=== PATIENT | female | born 1960 ===

== ENCOUNTER → 2018-03-30 19:03 | Outpatient (REF) | payer OTHER, MEDICAID, SELFPAY | LOC: LAB 19:03 | PROVIDERS: Visit Provider Nurse Practitioner Acute Care | DX: R50.9 Fever, unspecified (principal); R60.0 Localized edema | CPT/HCPCS: 87070; 87075; 87077; 87147; 87186; 87205 ==

== ENCOUNTER 2020-11-04 12:24 | Emergency (ER) | payer OTHER, MEDICAID, SELFPAY ==
[2020-11-04 12:25] VITALS: BMI 21.4
--- NOTE | 2020-11-04 12:27 | DI.RAD.S_ITS ---
PROCEDURE: XR CHEST 1V INDICATIONS: chest pain TECHNIQUE: One view of the chest was acquired. COMPARISON: [facility], CR, CHEST 2VW, 12/16/2009, 9:35. [facility], CT, CT HEAD/BRAIN WO CON, 11/04/2020, 12:41. FINDINGS: Surgical changes and devices: None. Lungs and pleura: Lungs are clear. No pleural effusions or pneumothorax. Mediastinum: Mediastinal contours appear normal. Heart size is normal. A moderate hiatal hernia is seen, with an air-fluid level. Bones and chest wall: No suspicious bony lesions. Overlying soft tissues appear unremarkable. IMPRESSION: No acute cardiopulmonary process is seen. Moderate hiatal hernia. Dictated by: John Wang M.D. on 11/04/2020 at 11:52 Approved by: John Wang M.D. on 11/04/2020 at 11:53
--- NOTE | 2020-11-04 12:35 | DI.CT.S_ITS ---
PROCEDURE: CT HEAD/BRAIN WO CON INDICATIONS: out of sorts TECHNIQUE: Noncontrast 4.5 mm thick angled axial sections acquired from the foramen magnum to the vertex, with coronal reformats. For radiation dose reduction, the following was used: automated exposure control, adjustment of mA and/or kV according to patient size. COMPARISON: [facility], CR, XR CHEST 1V, 11/04/2020, 12:42. FINDINGS: Image quality: Excellent. CSF spaces: Basal cisterns are patent. An arachnoid cyst is seen involving the posterior fossa to the left of the midline, as on series 2 image 12. The ventricles are symmetric in size and shape. Brain: No intracranial bleeds or masses. There is cerebral volume loss for age, with resultant ventricular and sulcal prominence. There are mild periventricular and deep white matter chronic small vessel ischemic changes. There is intracranial internal carotid artery atherosclerosis. Skull and face: Calvarium and visualized facial bones appear intact, without suspicious lesions. Sinuses: Visualized sinuses and mastoids are clear. IMPRESSION: No acute intracranial process is seen. Dictated by: John Wang M.D. on 11/04/2020 at 11:53 Approved by: John Wang M.D. on 11/04/2020 at 11:56
[2020-11-04 13:10] LABS: Add Manual Diff / Slide Review NO; Basophils Absolute Auto 100 /uL (0-100); Eosinophils Absolute Auto 100 /uL (0-450); Eosinophils Percent Auto 2.6 % (2-4); Hematocrit 42.2 % (36-46); Hemoglobin 13.9 g/dL (12.0-16.0); Lymphocytes Absolute Auto 1000 /uL (1100-4500); Lymphocytes Percent Auto 18.3 % (25-40); Mean Corpuscular Hemoglobin 28.2 PG (26-34); Mean Corpuscular Volume 85.7 fL (80-100); Monocytes Absolute Auto 500 /uL (0-900); Neutrophils Absolute Auto 3600 /uL (1500-7000); Neutrophils Percent Auto 69.1 % (50-75); Platelet Count 245 X10^3/uL (150-400); Red Blood Cell Count 4.92 X10^6/uL (4.0-5.2); Red Cell Distribution Width 31.5 % (11.6-14.8); White Blood Cell Count 5.3 X10^3/uL (4.5-11.0)
[2020-11-04 13:15] LABS: HEMOLYSIS < 15 (0-50)
[2020-11-04 13:16] LABS: Prothrombin Time 10.8 SECONDS (10.1-12.7)
[2020-11-04 13:19] LABS: PTT Partial Thromboplastin Tim 35 SECONDS (26.4-36.2)
[2020-11-04 13:20] LABS: Alanine Aminotransferase 28 IU/L (<35); Albumin 4.5 g/dL (3.5-5.0); Albumin Globulin Ratio 1.4 (1.0-2.8); Alkaline Phosphatase 80 U/L (38-126); Aspartate Aminotransferase 50 IU/L (14-36); BUN Creatinine Ratio 20.3 (6-22); Bilirubin Total 0.5 mg/dL (0.2-1.3); Blood Urea Nitrogen 12 mg/dL (7-17); Calcium 9.9 mg/dL (8.4-10.2); Carbon Dioxide 25 mmol/L (22-32); Chloride 104 mmol/L (98-107); Creatine Kinase 39 U/L (30-135); Estimated Glomerular Filt Rate > 60.0 mL/min (>60); Globulin 3.2 g/dL (1.7-4.1); Glucose 104 mg/dL (80-110); Lipase 53 U/L (23-300); Potassium 4.1 mmol/L (3.4-5.1); Sodium 137 mmol/L (137-145); Total Protein 7.7 g/dL (6.3-8.2)
[2020-11-04 13:24] LABS: Anisocytosis 2+
[2020-11-04 13:33] LABS: Troponin I < 0.012 ng/mL (0.01-0.034)
== END 2020-11-04 16:29 | disposition left against medical advice (07) ==
PROVIDERS: Emergency Provider Emergency Medicine
DX: R07.9 Chest pain, unspecified (principal); R41.82 Altered mental status, unspecified; R53.1 Weakness; R42 Dizziness and giddiness
CPT/HCPCS: 36415; 70450; 71045; 80053; 81003; 82550; 83690; 84484; 85025; 85610; 85730; 93005; 99283; 99284

== ENCOUNTER 2020-11-04 18:09 | Emergency (ER) | payer OTHER, MEDICAID, SELFPAY ==
[2020-11-04 18:20] VITALS: BP 141/72; PULSE 82; RESP 18; TEMP 36.6; O2SAT 98
--- NOTE | 2020-11-04 18:33 | ED_ITS ---
HPI - Recheck/Abnormal Lab/Rx General Chief Complaint: Recheck/Abnormal Lab/Rx Stated Complaint: Not Feeling Well Time Seen by Provider: 11/04/20 18:33 Source: patient Mode of arrival: Ambulatory Limitations: no limitations History of Present Illness HPI narrative: Patient is a 59-year-old female who presents with not feeling well and generalized weakness for the last 1 week. Hit got worse earlier today she was here she had head CT could she was slightly dizzy she a blood work EKG chest x-ray and then left before she was evaluated and has now returned. She feels like she has extra sweaty she has a history of what sounds like GI bleed. She was admitted at [place] and transferred up to [place] she required a blood transfusion she said she had a bleeding ulcer she is worried that her iron is low again. She denies chest pain or palpitations. She has not passed out. Related Data Home Medications Medication Instructions Recorded Confirmed albuterol sulfate 1 - 2 inh INHALATION QID PRN 11/04/20 11/04/20 oxybutynin chloride 5 mg PO DAILY 11/04/20 11/04/20 Review of Systems Review of Systems ROS Unobtainable: All systems reviewed & are unremarkable except as noted in HPI and below Constitutional Constitutional: Denies chills, Denies fever(s), Reports lethargy and Reports weakness Eyes Eyes: Denies change in vision, Denies eye discharge, Denies irritation and De nies loss of vision Cardiovascular Cardiovascular: Denies chest pain, Denies irregular heart rhythm, Denies lightheadedness, Denies palpitations, Denies dyspnea, Denies dyspnea on exertion and Denies orthopnea Respiratory Respiratory: Denies cough, Denies dyspnea, Denies dyspnea on exertion and Denies wheezing Gastrointestinal Gastrointestinal: Denies abdominal pain, Denies change in bowel habits, Denies diarrhea, Denies nausea and Denies vomiting Musculoskeletal Musculoskeletal: Denies back pain and Denies myalgias Integumentary/Breasts Skin/Breast: Denies pruritus, Denies erythema, Denies rash and Denies wounds Neurologic Neurologic: Denies loss of vision and Reports weakness Endocrine Endocrine: Denies palpitations Allergic/Immunologic Allergic/Immunologic: Denies wheezing Patient History Social History Smoking Status: Current every day smoker Smoking Status: Current every day smoker alcohol intake frequency: 0-2 drinks per day Substance Use Type: does not use Exam Initial Vital Signs Initial Vital Signs: Vital Signs Temperature 97.8 F 11/04/20 18:20 Pulse Rate 82 11/04/20 18:20 Respiratory Rate 18 11/04/20 18:20 Blood Pressure 141/72 H 11/04/20 18:20 Pulse Oximetry 98 11/04/20 18:20 GENERAL: Well-appearing, well-nourished and in no acute distress. HEENT: Head atraumatic,EOMI, pupils reactive, face symmetric, moist mucous membranes CARDIOVASCULAR: Regular rate and rhythm without murmurs, rubs or gallops. RESPIRATORY: Breath sounds equal bilaterally, no wheezes rales or rhonchi. ABDOMEN: Soft, nontender. Normoactive bowel sounds all 4 quadrants. No guarding or rebound. EXTREMITIES: Normal range of motion, no clubbing or edema. Neurovascularly intact NEUROLOGICAL: Alert and oriented x4.Normal gait and speech. Cranial nerves II through XII grossly intact. Good [id number], good [id number], strength equal bilaterally, no dysarthria or aphasia, sensation in tact to soft touch bilaterally, no visual changes, no facial droop SKIN: Warm, dry, no laceration, no petechiae, no rashes or lesions. Scores NIH Stroke Scale Level of Conciousness: Alert, keenly responsive Ask month/age: Answers both questions correctly. Open/close eyes, close hand: Performs both tasks correctly Best gaze horizontal: Normal Visual pastor: No visual loss Facial palsy: Normal symetrical movement Left arm drift: No drift for full 10 sec Right arm drift: No drift for full 10 sec Left leg drift: No drift for full 5 sec Right leg drift: No drift for full 5 sec Limb ataxia: Absent Sensory on face/arms/legs: Normal, no sensory loss Best language: No aphasia, normal Dysarthria: Normal Extinction or inattention: No abnormality Total NIH Stroke scale score: 0 Course Orders Ordered: ED Orders 11/04/20 18:48 Troponin I Stat 11/04/20 18:49 EKG-12 Lead Stat Vital Signs Vital signs: Vital Signs - 8 hr 11/04/20 18:20 Temperature 97.8 F Pulse Rate 82 Respiratory Rate 18 Blood Pressure 141/72 H Pulse Oximetry 98 MDM - Recheck/Abnormal Lab/Rx Lab Data Attestation: I reviewed the patient's lab results. Labs: Lab Results 11/04/20 Range/Units 19:00 Troponin I < 0.012 (0.01-0.034) ng/mL Urine Dip Bedside Urine Glucose Negative Bedside Urine Bilirubin - Negative Bedside Urine Ketone - Negative Urine Specific [place] 1.030 Bedside Urine Occult Blood - Negative Bedside Urine pH 6.0 Bedside Urine Protein - Negative Bedside Urine Urobilinogen - Negative Bedside Urine Nitrite - Negative Bedside Urine Leukocytes - Negative Esterase Imaging Data CT scan - head: Radiologist's Impression: PROCEDURE: CT HEAD/BRAIN WO CON INDICATIONS: out of sorts TECHNIQUE: Noncontrast 4.5 mm thick angled axial sections acquired from the foramen magnum to the vertex, with coronal reformats. For radiation dose reduction, the following was used: automated exposure control, adjustment of mA and/or kV according to patient size. COMPARISON: [facility], CR, XR CHEST 1V, 11/04/2020, 12:42. FINDINGS: Image quality: Excellent. CSF spaces: Basal cisterns are patent. An arachnoid cyst is seen involving the posterior fossa to the left of the midline, as on series 2 image 12. The ventricles are symmetric in size and shape. Brain: No intracranial bleeds or masses. There is cerebral volume loss for age, with resultant ventricular and sulcal prominence. There are mild periventricular and deep white matter chronic small vessel ischemic changes. There is intracranial internal carotid artery atherosclerosis. Skull and face: Calvarium and visualized facial bones appear intact, without suspicious lesions. Sinuses: Visualized sinuses and mastoids are clear. IMPRESSION: No acute intracranial process is seen. Dictated by: John Wang M.D. on 11/04/2020 at 11:53 Chest x-ray: Radiologist's Impression: PROCEDURE: XR CHEST 1V INDICATIONS: chest pain TECHNIQUE: One view of the chest was acquired. COMPARISON: [facility], CR, CHEST 2VW, 12/16/2009, 9:35. [facility], CT, CT HEAD/BRAIN WO CON, 11/04/2020, 12:41. FINDINGS: Surgical changes and devices: None. Lungs and pleura: Lungs are clear. No pleural effusions or pneumothorax. Mediastinum: Mediastinal contours appear normal. Heart size is normal. A moderate hiatal hernia is seen, with an air-fluid level. Bones and chest wall: No suspicious bony lesions. Overlying soft tissues appear unremarkable. IMPRESSION: No acute cardiopulmonary process is seen. Moderate hiatal hernia. Dictated by: John Wang M.D. on 11/04/2020 at 11:52 ECG Data Attestation: I personally reviewed and interpreted this ECG as follows: Prior ECG tracings: available for review Interpretation: EKG 1. Normal sinus rhythm rate 75 p.r. interval 160 QRS 82 T- wave inversions noted in the to be 3 with out S she elevations EKG 2. Sinus rhythm rate 73 persistent T-wave inversion in the to no ST changes EKG actually looks improved. MDM Narrative Medical decision making narrative: Patient has vague nonspecific complaints. She really has no actual chest pain. She has been feeling this way for number of hours she was worked up blood work is in [employer] she has repeat troponin during this particular visit which is negative. She has no focal deficits. Head CT that was done earlier in the day is also negative. She is tolerating fluids at this time no indication for IV fluids. She really has no signs and symptoms of cardiac issues she does have some abnormality in her EKG which she has 2 troponins about 6 hours apart the are negative. At this time I recommend she follow-up with her primary care provider Discharge Plan Departure Patient Disposition: Home Clinical Impression: Weakness Instructions: DI for Muscle Weakness Activity Restrictions/Additional Instructions: *You have been diagnosed with generalized weakness *What to do: At this time blood work is overall reassuring you have no signs of anemia. The CT scan of your head was also is unremarkable. Please continue to increase fluid intake. Try and get some sleep at nighttime. *Continue to take medications as directed Tylenol a 1000 mg every 6 hours if needed for [id number] pain *Follow up with your primary care provider in 2-3 days *Return to ER if you should have increasing weakness dizziness lightheadedness or passing or any new, worsening or concerning symptoms Prescriptions: No Action oxybutynin chloride 5 mg tablet extended release 24hr 5 mg PO DAILY RF: 0 albuterol sulfate 90 mcg/actuation HFA aerosol inhaler 1 - 2 inh INHALATION QID PRN (Reason: Wheezing) RF: 0
[2020-11-04 19:31] LABS: Troponin I < 0.012 ng/mL (0.01-0.034)
== END 2020-11-04 21:00 | disposition home or self-care (01) ==
PROVIDERS: Emergency Provider Emergency Medicine
DX: R53.1 Weakness (principal); R42 Dizziness and giddiness
CPT/HCPCS: 36415; 81003; 84484; 93005